=== PATIENT | female | born 1995 | race Caucasian/White ===

== ENCOUNTER 2025-04-20 12:32 | Outpatient (OUT) | payer OTHER, SELFPAY ==
--- OUTSIDE RECORDS SUMMARY | 2025-04-20 12:35 | XMS_ITS | Clinical Summary ---
Author Organization [facility] Address [address] [place] [address] Phone Care Team Providers Care Pacu Nurse Name Role Phone Ambar Walters APRN-PROTECTION MGR Primary Care Pro vider Allergies No known active allergies Medications MedicationSigDispense QuantityRefillsLast FilledStart DateEnd DateStatus clonazePAM (KlonoPIN) 0.5 mg tablet Take 1 tablet (0.5 mg) by mouth 2 times a day.Active etonogestrel-eluting contraceptive (Nexplanon) 68 mg implant implant by subdermal route.Active metoprolol tartrate (Lopressor) 25 mg tablet Take 1 tablet (25 mg) by mouth 2 times a day. As needed /prn11/26/2021ctive naproxen (Naprosyn) 500 mg tablet Take 1 tablet (500 mg) by mouth 2 times a day as needed.Active SUMAtriptan (Imitrex) 100 mg tablet Take 1 tablet (100 mg) by mouth 1 time if needed for migraine.Active busPIRone (Buspar) 10 mg tablet Take by mouth 3 times a day.Active cholecalciferol (Vitamin D3) 50 MCG (2000 UT) tablet Take 1 tablet (50 mcg) by mouth once daily.Active buPROPion XL (Wellbutrin XL) 300 mg 24 hr tablet Take 1 tablet (300 mg) by mouth once daily. Do not crush, chew, or split.Active magnesium oxide (Mag-Ox) 400 mg (241.3 mg magnesium) tablet Indications:Sinus tachycardiaTake 1 tablet (400 mg) by mouth 2 times a day. 5Active metoprolol succinate XL (Toprol-XL) 100 mg 24 hr tablet Indications:Sinus tachycardiaTake 1.5 tablets (150 mg) by mouth once daily. Do not crush or chew. 135 tablet /ctive Active Problems ProblemNoted DateDiagnosed DateBMI 38.0-38.9,adult11/17/2023Never smoked tobacco 11/17/2023nxiety tuqxngkn43/07/2024typical chest pain08/05/2023Sinus sgjonjwqbnn76/07/2024Vitamin D fciyzoeubb55/07/2024 Immunizations ImmunizationAdministration DatesNext DueModerna SARS-CoV-2 Zgopawljdop02/24/2021 ,10/01/2020 Family History Medical HistoryRelationNameCommentsheart problemFatherRelationNameStatusComments Father Social History Tobacco UseTypesPacks/DayYears UsedDateSmoking Tobacco: NeverSmokeless Tobacco: Never Tobacco Cessation:Counseling Given: Not Answered Alcohol UseStandard Drinks/WeekCommentsYes0 (1 standard drink = 0.6 oz pure alcohol)CommentsUnknownSex and Gender InformationValueDate RecordedSex Assigned at BirthNot on fileLegal VfxJyncmj15/25/2022 1:30 PM ESTGender Identity Not on fileSexual OrientationNot on file Last Filed Vital Signs Vital SignReadingTime TakenCommentsBlood Xjomytjk225/78011/15/2024 9:39 AM EDT Ptguf766211/15/2024 9:30 AM EDTTemperature--Respiratory Rate--Oxygen Saturation-- Inhaled Oxygen Concentration--Uebbdk214 kg (243 lb)11/15/2024 9:30 AM EDTHeight 170.2 cm (5' 7 )11/15/2024 9:30 AM EDTBody Mass Index38.0611/15/2024 9:30 AM EDT Plan of Treatment DateTypeDepartmentCare Team (Latest Contact Info)Jksgyanuatb30/18/2026 8:30 AM EDTOffice Visit [facility] [address] [facility] [address] [place] [address] Shari Nuñez MD [address] [facility] [address] [place] [address] Health MaintenanceDue DateLast DoneCommentsHIV Joccszdzv30/24/1996Lipid Panel 1995MMR Vaccines (1 of 1 - Standard series)09/21/1996Hepatitis C Screening 09/21/2013Hepatitis B Vaccines (1 of 3 - 19+ 3-dose series)09/21/2014Cervical Cancer Dbzcnustu87/24/2017HPV/Cggkrf3109/21/2016Pap Smear09/21/2016DTaP/Tdap/Td Vaccines (1 - Tdap)09/21/2017HPV Vaccines (1 - 3-dose standard series)09/21/2022 Influenza Vaccine (#1)/OVID-19 Vaccine (3 - 2024- season) /, 10/01/2020Yearly Adult Wtzqquxs38/, 03/16/2023Zoster Vaccines (1 of 2)09/21/2045HIB VaccinesAged OutNo longer eligible based on patient's age to complete this topicHepatitis A VaccinesAged OutNo longer eligible based on patient's age to complete this topicIPV Vaccines Aged OutNo longer eligible based on patient's age to complete this topic Meningococcal VaccineAged OutNo longer eligible based on patient's age to complete this topicPneumococcal Vaccine: Pediatrics and At-Risk Adult Patients Aged OutNo longer eligible based on patient's age to complete this topic Rotavirus VaccinesAged OutNo longer eligible based on patient's age to complete this topic Insurance Care Teams Team MemberRelationshipSpecialtyStart DateEnd Date Ambar Walters APRN-MEGHANA [address] [place] [address] PCP - GeneralFamily Medicine11/15/24
--- OUTSIDE RECORDS SUMMARY | 2025-04-20 12:35 | XMS_ITS | Clinical Summary ---
Author Organization [facility] Address [address] [place] [address] Care Team Providers Care Asset Protection Specialist Name Role Phone Ambar Walters BUGGY LOADER Primary Care Provider Allergies No known active allergies Medications MedicationSigDispense QuantityRefillsLast FilledStart DateEnd DateStatus buPROPion XL (Wellbutrin XL) 300 MG 24 hr tablet Take 300 mg by mouth in the morning.06/20/2022ctive busPIRone (Buspar) 10 MG tablet Take 10 mg by mouth in the morning and 10 mg before bedtime.Active etonogestrel-eluting (Nexplanon) 68 mg contraceptive implant by Implant route09/15/2021ctive metoprolol succinate XL (Toprol-XL) 50 MG 24 hr tablet Take 100 mg by mouth 1 (one) time each day at the same time 1 1/2 tablets daily Active naproxen (Naprosyn) 500 MG tablet Take 500 mg by mouth if neededActive SUMAtriptan (Imitrex) 100 MG tablet Take 100 mg by mouth if neededActive diazePAM (Valium) 5 MG tablet Indications:Ingrown toenail of right foot,Pain around toenail, right footTake 1 tablet (5 mg) by mouth 1 (one) time for 1 dose 1 tablet 07/21/2023ctive clonazePAM (KlonoPIN) 0.5 MG tablet Take 0.5 mg by mouth in the morning and 0.5 mg in the evening.08/19/2023ctive Active Problems No known active problems Family History RelationNameStatusCommentsFatherAliveMotherAlive Social History Tobacco UseTypesPacks/DayYears UsedDateSmoking Tobacco: NeverSmokeless Tobacco: Never Tobacco Cessation:Counseling Given: Not Answered Alcohol UseStandard Drinks/WeekCommentsNot Currently0 (1 standard drink = 0.6 oz pure alcohol)Maybe a glass or 2 of wine a monthPHQ-2AnswerDate RecordedPatient Health Questionnaire-2 Zklqd501/29/2024CommentsNoSex and Gender InformationValueDate RecordedSex Assigned at PcfpvLexulp89/14/2024 3:38 PM EST Legal XxrWdshbx93/15/2023 11:23 PM EDTGender DuzfediqZemtyw98/14/2024 3:38 PM ESTSexual OrientationNot on file Last Filed Vital Signs Vital SignReadingTime TakenCommentsBlood Ivpwolai534/72010/02/2024 4:10 PM EDT Lgyxi128108/03/2023 8:24 AM RZEUqaoclkqsmo48.2 ??C (97.2 ??F)08/03/2023 8:24 AM ESTRespiratory Rate--Oxygen Saturation--Inhaled Oxygen Concentration--Vmmdli070 kg (238 lb)10/02/2024 4:10 PM PUVEzkacm578.2 cm (5' 7 )11/28/2021 12:00 PM EDT Body Mass Index37.2807 12:00 PM EDT Plan of Treatment Not on file Insurance Care Teams Team MemberRelationshipSpecialtyStart [place] [address] [place] [id number] [facility]21/[facility]
--- NOTE | 2025-04-20 13:45 | MR_ITS ---
The [address] [address] Patient Name: JEAN-PAUL BRO MRN: [id number] date: 1995 Sex: F Assigned Patient Location: MRI Current Patient Location: Accession/Order Number: [id number] Exam Date: 04/20/2025 12:45 Report Date: 04/21/2025 09:59 At the request of: NELLIE ROBB Procedure: MR head/brain wo/w con MRI of the brain with and without IV contrast. Reason for exam: Chronic migraines. COMPARISON: None. TECHNIQUE: Multisequence, multiplanar imaging of the brain was performed before and after the use of IV contrast. FINDINGS: No evidence of restriction diffusion is an diffusion-weighted imaging. Several punctate areas of abnormal white matter signal is seen on the T2 FLAIR imaging. Posterior fossa appears unremarkable. Intraorbital contents appear unremarkable. No significant paranasal sinus disease. Midline structures appear unremarkable. Postcontrast imaging demonstrates no abnormal enhancement. MR/MR head/brain wo/w con IMPRESSION: No acute findings. No abnormal enhancement. Punctate areas of abnormal white matter signal the T2 FLAIR imaging which may relate to the patient's migraines but is a nonspecific finding. Impression dictated by: Marco Antonio Jason Jr., D.O. 04/21/2025 9:59 AM Dictation Location: [place] [address] Electronically authenticated by: [id number] Y Date: 04/21/2025 09:59
== END 2025-04-20 12:33 | disposition home or self-care (01) ==
LOC: MRI 12:32
PROVIDERS: PCP Nurse Practitioner Family; Visit Provider Nurse Practitioner Family
DX: G43.909 Migraine, unspecified, not intractable, without status migrainosus (principal); H53.9 Unspecified visual disturbance
CPT/HCPCS: 70553; A9575